=== PATIENT | male | born 1965 | race Caucasian/White ===

== ENCOUNTER 2024-08-23 16:29 | Emergency (ER) | payer MEDICAID ==
[~2024-08-23] VITALS: Ht 154.2 cm; Wt 101.6 kg
[2024-08-23 16:34] VITALS: O2SAT 97
[2024-08-23] MEDS ORDERED: MAGNESIUM/ALUMINUM HYDROXIDE/SIMETHICONE 30ML UDC PO ONE (19:15)
[2024-08-23] MEDS ORDERED: ONDANSETRON 4MG ODT PO ONE (19:15)
[2024-08-23] MEDS ORDERED: FAMOTIDINE 20MG TABLET PO ONE (19:15)
[2024-08-23] MEDS ORDERED: DICYCLOMINE HCL 10MG CAPSULE PO ONE (19:15)
[2024-08-23 19:22] LABS: HEMATOCRIT. 29.7 % (42.0-52.0); HEMOGLOBIN. 9.5 g/dL (14.0-18.0); MEAN CORPUSCULAR HEMOGLOBIN 28.2 pg (28.0-32.0); MEAN CORPUSCULAR VOLUME 88.1 fL (80.0-94.0); MEAN PLATELET VOLUME 7.8 fl (7.4-10.4); PLATELET 265 x1000/uL (130-400); RED BLOOD CELL COUNT 3.37 mill/uL (4.7-6.1); RED CELL DISTRIBUTION WIDTH 20.4 % (11.6-14.6); WHITE BLOOD COUNT 5.1 x1000/uL (4.5-11.0)
[2024-08-23 19:23] LABS: CHLORIDE 101 mEq/L (98-107); DIFFERENTIAL COMMENT 1; POTASSIUM 3.7 mEq/L (3.5-5.1); SODIUM 134 mEq/L (136-145)
[2024-08-23 19:24] LABS: CARBON DIOXIDE 25 mEq/L (21-32)
[2024-08-23 19:25] LABS: CALCIUM 9.4 mg/dL (8.7-10.4)
[2024-08-23 19:29] LABS: GLUCOSE 104 mg/dL (70-105)
[2024-08-23 19:30] LABS: UREA NITROGEN BLOOD 17 mg/dL (9-23)
[2024-08-23 19:31] LABS: ALANINE AMINOTRANSFERASE 27 IU/L (10-49); ALBUMIN 3.9 g/dL (3.2-4.8); ASPARTATE AMINOTRANSFERASE 64 IU/L (<34); INR 1.1; PROTHROMBIN TIME 11.9 sec (9.6-11.0); TROPONIN I HIGH SENSITIVITY 14 ng/L (3.0-53)
[2024-08-23 19:32] LABS: BILIRUBIN DIRECT 0.4 mg/dL (<=3.0); BILIRUBIN TOTAL 0.7 mg/dL (0.1-1.0); PROTEIN TOTAL 8.1 g/dL (6.0-8.3)
[2024-08-23 19:34] LABS: ETHANOL BLOOD < 10 mg/dL (<10)
[2024-08-23 20:20] LABS: ANISOCYTOSIS 1+; PLATELET ESTIMATE NORMAL
[2024-08-23] MEDS: FAMOTIDINE 20MG TABLET PO NR (21:17)
[2024-08-23] MEDS: DICYCLOMINE HCL 10MG CAPSULE PO NR (21:17)
[2024-08-23] MEDS: MAGNESIUM/ALUMINUM HYDROXIDE/SIMETHICONE 30ML UDC PO NR (21:17)
[2024-08-23] MEDS: ONDANSETRON 4MG ODT PO NR (21:18)
[2024-08-24 05:58] VITALS: BP 111/75; PULSE 87; RESP 16; TEMP 36.9474; TEMP 36.974; TEMP 36.9740; O2SAT 97
== END 2024-08-23 21:35 | disposition home or self-care (01) ==
LOC: ER 16:29
DX: K52.9 Noninfective gastroenteritis and colitis, unspecified (principal); I25.10 Atherosclerotic heart disease of native coronary artery without angina pectoris; I10 Essential (primary) hypertension; Z95.0 Presence of cardiac pacemaker
CPT/HCPCS: 80076; 80048; 80320; 83690; 85025; 85610; 84484; 36415; 71045; 74176; 99284; Q0162; G0480